=== PATIENT | female | born 1935 | race Caucasian/White ===

== ENCOUNTER → 2018-08-21 | Outpatient (CLI) | payer OTHER ==
[~2018-08-21] MED LIST: 3N1 COMMODE MC; AMLO5TAB4 PO; ASPI-781 PO; Accu-Chek Test Strip XX; BEN25 PO; BENA20TA4 PO; BISA10SU75 PR; CPM MC; DOCU-144 PO; FAMO20VI9 IV; METF500T PO; Metformin Hcl PO; NA P133E3 PR; OXYC-481 PO; TRAM50TA2 PO; WALK1EAC23 MC
--- NOTE | 2018-08-21 15:55 | RADRPT ---
PROCEDURE: Right knee radiographs. CLINICAL INDICATION: Right knee pain. TECHNIQUE: Four views. Weight bearing. Frontal, lateral, oblique, and patellar view. COMPARISON: December 01, 2014. FINDINGS: There is no fracture or dislocation. The soft tissues are normal. There are degenerative changes with osteophytes arising from all 3 joint compartment margins. There i s medial joint compartment narrowing, subarticular sclerosis, and deformity. There is no lytic or blastic lesion. There is no radiopaque foreign body. IMPRESSION: 1. Severe degenerative changes of the right knee predominately involving the medial joint compartmen t. 2. Otherwise unremarkable images of the right knee. RPTAT: QQ .Bryn Sanchez MD, MD Date Time Electronically viewed and signed by .Bryn Sanchez MD, on 08/21/2018 15:55 .R/
--- NOTE | 2018-08-21 19:06 | HKNOTE ---
DATE OF SERVICE: 08/21/2018 CHIEF COMPLAINT: Right knee pain. HISTORY OF PRESENT ILLNESS: Ms. Kearney is an 83-year-old female complaining of chronic right knee p ain. The pain has been worsening over the last 3 years. She uses a cane for ambulation. She had a previous left total knee arthroplasty by Dr. Valentin Mata. She is able to perform her activities of d aily living. PAST MEDICAL HISTORY: Diabetes. MEDICATIONS: 1. Metformin. 2. Amlodipine. 3. Glipizide. 4. Levothyroxine. 5. Aspirin. PAST SURGICAL HISTORY: Left total knee replacement in [address] Valentin Mata. SOCIAL HISTORY: Denies tobacco, alcohol use. ALLERGIES: NO ALLERGIES. PHYSICAL EXAMINATION: Gait: Nonantalgic gait, reciprocal gait pattern. Right knee exam: Varus ali gnment. Tender over the medial joint line. Nontender over the lateral joint line. A 0 to 120 degre es range of motion. Stable to varus and valgus stress. Negative Na's. Negative anterior drawe r. Negative posterior drawer. Negative Sophie's. A 5/5 strength of the quadriceps, tibialis ante rior, gastroc soleus. X-RAYS OF THE RIGHT KNEE: Four views of the right knee demonstrate tricompartmental degenerative raegan nges with [id number] contact in the medial compartment and the patellofemoral joint with peripheral osteophytes and subchondral sclerosis. IMPRESSION: An 83-year-old female with right knee osteoarthritis. PLAN: I discussed treatment options with the patient, including operative management. She declined surgery at this time. We will request authorization for right knee Monovisc injection. She does not require pain medications. She will follow up in 4 weeks. Dictated By: TRE CASTANEDA/BHARTI Conf#: [id number] DID#: [id number]
== END | disposition home or self-care (01) ==
LOC: HKI 15:43
PROVIDERS: ATTEND Orthopaedic Surgery Adult Reconstructive Orthopaedic Surgery
DX: M17.11 Unilateral primary osteoarthritis, right knee (principal); E11.8 Type 2 diabetes mellitus with unspecified complications; Z79.84 Long term (current) use of oral hypoglycemic drugs; Z79.82 Long term (current) use of aspirin
CPT/HCPCS: 73564; Z7500; G0463

== ENCOUNTER → 2018-11-13 | Outpatient (CLI) | payer OTHER ==
--- NOTE | 2018-11-13 20:03 | HKNOTE ---
DATE OF SERVICE: 11/13/2018 CHIEF COMPLAINT: Right knee pain. HISTORY OF PRESENT ILLNESS: Ms. Kearney had a right knee Monovisc injection on 09/07/2018. She stat es that she did not obtain pain relief. She continues to have severe pain in the right knee. She jauregui s difficulty ambulating. PHYSICAL EXAMINATION: GAIT: Antalgic gait, reciprocal gait pattern. RIGHT KNEE: Varus alignment. Tender over the medial joint line, 0 to 120 degrees range of motion, s table to varus valgus stress. Negative Na. Negative anterior drawer. Negative posterior drawe r. A 5/5 strength quadriceps, tibialis anterior, gastroc soleus. IMAGING: X-rays of the right knee, 4 views of the right knee demonstrate advanced tricompartmental d egenerative changes with [id number] contact in the medial compartment and the patellofemoral joint and peripheral osteophytes and subchondral sclerosis. IMPRESSION: An 83-year-old female with right knee osteoarthritis. PLAN: We will request authorization for right knee steroid injection. She will follow up in my [facility] office within 6 weeks. Dictated By: TRE TOWNSEND MD SS/NTS Conf#: [id number] DID#: [id number]
== END | disposition home or self-care (01) ==
LOC: HKI 14:30
PROVIDERS: ATTEND Orthopaedic Surgery Adult Reconstructive Orthopaedic Surgery
DX: M17.11 Unilateral primary osteoarthritis, right knee (principal)
CPT/HCPCS: G0463